=== PATIENT | female | born 1995 | race Caucasian/White ===

== ENCOUNTER 2020-11-24 21:46 | Emergency (ER) | payer OTHER, SELFPAY ==
[2020-11-24] MEDS ORDERED: hydrOXYzine HCL 25 MG TAB ONE (22:36)
[2020-11-24 22:42] LABS: Absolute Lymphocytes (CBC) 2.8 K/uL (0.7-4.9); Basophils % 0.5 % (0-1.3); Hematocrit 36.5 % (36.0-45.0); Lymphocytes % 28.4 % (15.3-44.8); MPV 8.9 fL (7.6-11.3); RBC Red Blood Cell Count 4.23 M/uL (3.86-4.86)
[2020-11-24 22:59] LABS: Potassium 3.1 mmol/L (3.5-5.1)
--- NOTE | 2020-11-24 23:17 | ER ---
Nurse's Notes [facility] Name: Jade Fink Age: 25 yrs Sex: Female : 1995 Arrival Date: 11/24/2020 Time: 21:51 Bed 17 Private MD: Curt Garza Diagnosis: Anxiety disorder, unspecified Presentation: 11/24 22:04 Chief complaint: Patient states: she was at work tonight about 2 hours ago and suddenly bb felt like it was difficult to take a deep breath and she felt like she was going to pass out and she had tingling to her limbs. She has had several other episodes like this in the past. Coronavirus screen: At this time, the client does not indicate any symptoms associated with coronavirus-19. Ebola Screen: No symptoms or risks identified at this time. Initial Sepsis Screen: Does the patient meet any 2 criteria? No. Patient's initial sepsis screen is negative. Does the patient have a suspected source of infection? No. Patient's initial sepsis screen is negative. Risk Assessment: Do you want to hurt yourself or someone else? Patient reports no desire to harm self or others. Onset of symptoms was November 24, 2020. 22:04 Method Of Arrival: Ambulatory bb 22:04 Acuity: MYRA 3 bb Triage Assessment: 22:33 General: Appears uncomfortable. Respiratory: Reports labored breathing Onset: The rv symptoms/episode began/occurred just prior to arrival, the patient reports symptoms have resolved. [employer]: 22:11 LMP 09/2020 bb Historical: - Allergies: 22:11 No Known Allergies; bb - Home Meds: 22:11 escitalopram oxalate oral oral [Active]; bb - PMHx: 22:11 Anxiety; bb - PSHx: 22:11 Dental surgery; bb - Immunization history:: Adult Immunizations up to date. - Social history:: Smoking status: Patient denies any tobacco usage or history of. Patient uses alcohol, occasionally. Patient/guardian denies using street drugs. Screenin:33 Abuse screen: Denies threats or abuse. Denies injuries from another. Nutritional rv screening: No deficits noted. Tuberculosis screening: No symptoms or risk factors identified. Fall Risk None identified. Assessment: 22:27 General: Appears uncomfortable, Behavior is anxious. rv 22:32 Pain: Denies pain. Neuro: Level of Consciousness is awake, alert, obeys commands, rv Oriented to person, place, time, situation. Cardiovascular: Patient's skin is warm and dry. Rhythm is sinus tachycardia. Respiratory: Airway is patent Respiratory effort is even, unlabored, Breath sounds are clear bilaterally. Derm: Skin is intact. Vital Signs: 22:04 BP 118 / 77; Pulse 117; Resp 18 S; Temp 98.1(O); Pulse Ox 100% on R/A; Weight 58.97 kg bb (R); Height 5 ft. 7 in. (170.18 cm) (R); Pain 0/10; 23:29 BP 119 / 75; Pulse 89; Resp 17; Pulse Ox 100% on R/A; rv 22:04 Body Mass Index 20.36 (58.97 kg, 170.18 cm) bb ED Course: 21:51 Patient arrived in ED. es 21:51 Curt Garza MD is Private Physician. es 22:03 Lillian Martines FNP-C is [facility]. kb 22:03 Constantine Riley MD is Attending Physician. kb 22:04 Kendell Parks RN is Primary Nurse. rv 22:09 Triage completed. bb 22:11 Arm band placed on Patient placed in an exam room, on a stretcher, on pulse oximetry. bb 22:20 Inserted saline lock: 20 gauge in right forearm, using aseptic technique. Blood rv collected. 22:20 Initial lab(s) drawn, by pa, sent to lab. rv 22:34 Patient has correct armband on for positive identification. Pulse ox on. NIBP on. rv 22:52 Chest Single View XRAY In Process Unspecified. EDMS 23:29 No provider procedures requiring assistance completed. IV discontinued, intact, rv bleeding controlled, No redness/swelling at site. Pressure dressing applied. Administered Medications: 22:26 Drug: hydrOXYzine 25 mg Route: PO; rv 23:15 Follow up: Response: No adverse reaction rv 23:05 Drug: Potassium Chloride 40 mEq Route: PO; rv 23:15 Follow up: Response: No adverse reaction rv Outcome: 23:16 Discharge ordered by . kb 23:29 Discharged to home ambulatory. rv 23:29 Condition: good 23:29 Discharge instructions given to patient, Instructed on discharge instructions, follow up and referral plans. Demonstrated understanding of instructions, follow-up care. 23:29 Patient left the ED. rv Signatures: Dispatcher [employer] Lillian Paulson, GALINA-Bentley WOLFP-Melani Felix Brenda, RN RN bb Kendell Parks RN RN rv Corrections: (The following items were deleted from the chart) 22:33 22:27 General: Appears rv rv
--- NOTE | 2020-11-24 23:17 | EDPHYS ---
Physician Documentation [facility] Name: Jade Fink Age: 25 yrs Sex: Female : 1995 Arrival Date: 11/24/2020 Time: 21:51 Bed 17 Private MD: Curt Garza ED Physician Constantine Riley SENIOR ENERGY MARKET COORDINATOR: 11/24 22:11 LMP 09/2020 bb Historical: - Allergies: 22:11 No Known Allergies; bb - Home Meds: 22:11 escitalopram oxalate oral oral [Active]; bb - PMHx: 22:11 Anxiety; bb - PSHx: 22:11 Dental surgery; bb - Immunization history:: Adult Immunizations up to date. - Social history:: Smoking status: Patient denies any tobacco usage or history of. Patient uses alcohol, occasionally. Patient/guardian denies using street drugs. Vital Signs: 22:04 BP 118 / 77; Pulse 117; Resp 18 S; Temp 98.1(O); Pulse Ox 100% on R/A; Weight 58.97 kg bb (R); Height 5 ft. 7 in. (170.18 cm) (R); Pain 0/10; 23:29 BP 119 / 75; Pulse 89; Resp 17; Pulse Ox 100% on R/A; rv 22:04 Body Mass Index 20.36 (58.97 kg, 170.18 cm) bb MDM: 22:03 Patient medically screened. kb 11/24 22:17 Order name: CBC with Diff; Complete Time: 22:52 kb 11/24 22:17 Order name: Basic Metabolic Panel; Complete Time: 22:59 kb 11/24 22:17 Order name: Chest Single View XRAY kb Administered Medications: 22:26 Drug: hydrOXYzine 25 mg Route: PO; rv 23:15 Follow up: Response: No adverse reaction rv 23:05 Drug: Potassium Chloride 40 mEq Route: PO; rv 23:15 Follow up: Response: No adverse reaction rv Disposition: 11/25 06:22 Co-signature as Attending Physician, Constantine Riley MD. [email or web address] Disposition: 11/24/20 23:16 Discharged to Home. Impression: Anxiety disorder, unspecified. - Condition is Stable. - Discharge Instructions: Panic Attacks, Dotr-re-Ahen. - Medication Reconciliation Form, Thank You Letter, Antibiotic Education, Prescription Opioid Use form. - Follow up: Emergency Department; When: As needed; Reason: Worsening of condition. Follow up: Private Physician; When: 2 - 3 days; Reason: Recheck today's complaints, Continuance of care, Re-evaluation by your physician. Addendum: 12/06/2020 20:20 Addendum: This 19 year old female presents to the ED via ambulatory with k b complaints of shortness of breath.. 20:22 Addendum: The pt has experienced shortness of breath, tingling and feeling lightheaded. k b Onset: just prior to arrival. Duration: This was a single episode that lasted a few minutes. Context: The episode occurred while working. Associated signs/symptoms: shortness of breath, bilateral hand tingling, lightheadedness.pertinent negatives: syncope, chest pain, headache, fever. Currently the patient is not experiencing any symptoms, they resolved prior to arrival. The patient has experienced similar episodes in the past and was diagnosed with anxiety and panic attacks. The pt has not recently seen a physician. . Addendum: ROS: Constitutional: Denies fever, chills, bodyaches, wt loss. Cardiovascular: Negative for chest pain, palpitations, and edema. Repiratory: positive for shortness of breath. Abd: negative for abd pain, n/v/d. MS/ext: negative for injury or deformity. Skin: negative for injury, rash and discoloration. Neuro: positive for tingling of hands, negative for headache, syncope, ams, numbness. Addendum: Exam: Constitional: This is a well developed, well nourished patient who is awake, alert and in no apparent distress. Head/Face: Normocephalic, atruamatic. CV: Regular rate and rhythm with normal S1 and S2. No pulse deficits. Resp: Respirations even and unlabored. No increased work of breathing, no retractions or nasal flaring. Skin: Warm, dry with normal turgor. Normal color. Neuro: Awake and alert, GCS 15, oriented to person, place, time and situation. Moves all extremities, ambulates with steady gait. . 20:33 Addendum: Data Reviewed: vital signs, nurses notes.; data interpreted: pulse ox on room k b air is 100%. interpretation:normal; Counseling: I had a detailed discussion with the patient regarding: the historical points, exam findings, and any diagnostic results supporting the discharge diagnosis, lab results, the need for outpatient follow up. Also to return to the ED if symptoms worsen or persist or if there are any questions or concerns that arise at home. . Signatures: Dispatcher [employer] EDMA Lillian Martines, EARLY CHILDHOOD ASSISTANT-C EARLY CHILDHOOD ASSISTANT-Debra Birmingham RN RN bb Kendell Parks RN RN rv Constantine Riley MD MD [email or web address] Corrections: (The following items were deleted from the chart) 11/24 23:29 23:16 11/24/2020 23:16 Discharged to Home. Impression: Anxiety disorder, unspecified. rv Condition is Stable. Forms are Medication Reconciliation Form, Thank You Letter, Antibiotic Education, Prescription Opioid Use. Follow up: Emergency Department; When: As needed; Reason: Worsening of condition. Follow up: Private Physician; When: 2 - 3 days; Reason: Recheck today's complaints, Continuance of care, Re-evaluation by your physician. kb
[2020-11-24] MEDS ORDERED: POTASSIUM CL SA 10 MEQ TAB PO ONE (23:21)
[2020-11-24 23:45] VITALS: TEMP 98.1; O2SAT 100
[2020-11-24 23:46] VITALS: BP 119/75
--- NOTE | 2020-11-25 08:19 | RAD REPORT ---
EXAM DESCRIPTION: RAD - Chest Single View - 11/24/2020 10:52 pm CLINICAL HISTORY: DYSPNEA COMPARISON: None TECHNIQUE: AP portable chest image was obtained 11/24/2020 10:52 pm . FINDINGS: Lungs are clear. Heart and vasculature are normal. No measurable pleural effusion and no p neumothorax. No acute bony abnormality seen. No acute aortic findings suspected. Nipple shadows overl ie the lower chest. IMPRESSION: No acute cardiopulmonary process.
== END 2020-11-24 23:29 | disposition home or self-care (01) ==
LOC: ER 21:46
DX: F41.9 Anxiety disorder, unspecified (principal)
CPT/HCPCS: 36415; 71045; 80048; 85025; 99284